=== PATIENT | male | born 1965 | race Hispanic/Latino ===

== ENCOUNTER 2020-09-10 12:23 | Inpatient (IN) | payer MEDICAID, OTHER ==
[~2020-09-10] VITALS: Ht 167.6 cm; Wt 89.7 kg
[2020-09-10] MEDS ORDERED: ONDANSETRON 4MG INJ ONE (12:34)
[2020-09-10] MEDS ORDERED: CEFAZOLIN SODIUM 1 GM VIAL ONE (12:34)
[2020-09-10] MEDS ORDERED: MORPHINE 4 MG SYG ONE (12:35)
[2020-09-10 12:50] LABS: BASOPHILS % (AUTO) 3.2 % (0.0-5.0); EOSINOPHILS % (AUTO) 4.5 % (0.0-8.0); HEMATOCRIT 29.9 % (42-54); LYMPHOCYTES % (AUTO) 43.4 % (21.0-51.0); MEAN CORPUSCULAR HEMOGLOBIN 25.2 pg (27.0-33.0); MEAN CORPUSCULAR HGB CONC 32.1 g/dL (32.0-36.0); MEAN CORPUSCULAR VOLUME 78.5 fL (79-99); MONOCYTES % (AUTO) 8.1 % (3.0-13.0); NEUTROPHILS % (AUTO) 40.1 % (40.0-77.0); PLATELET COUNT (AUTO) 20 K/uL (130-400); RED BLOOD CELL COUNT(AUTO) 3.81 MIL/uL (4.50-6.20); RED CELL DISTRIBUTION WIDTH 25.3 % (11.0-15.5); WHITE BLOOD COUNT (AUTO) 4.4 K/uL (4.8-10.8)
[2020-09-10 13:02] LABS: B-TYPE NATRIURETIC PEPTIDE 20 pg/mL (0-100)
[2020-09-10 13:05] LABS: CREATININE 0.8 mg/dL (0.5-1.5); POTASSIUM 3.6 mmol/L (3.5-5.1)
[2020-09-10 13:10] LABS: ALBUMIN 1.9 g/dL (3.5-5.0); BILIRUBIN,TOTAL 8.9 mg/dL (0.2-1.0); TOTAL PROTEIN, SERUM 6.1 g/dL (6.0-8.3)
[2020-09-10 13:29] LABS: PROTHROMBIN TIME > 63.0 SEC (9.6-11.6)
[2020-09-10 13:30] LABS: INR > 7.00 (0.85-1.15); PARTIAL THROMBOPLASTIN TIME 43.2 SEC (26.3-35.5)
[2020-09-10 14:21] LABS: APPEARANCE,URINE Clear (CLEAR); BILIRUBIN,URINE Small (NEGATIVE); COLOR,URINE Dark Yellow (YELLOW); GLUCOSE, URINE (UA) Negative (NEGATIVE); KETONES,URINE Negative (NEGATIVE); LEUKOCYTE ESTERASE ,URINE Negative (NEGATIVE); NITRATE,URINE Negative (NEGATIVE); OCCULT BLOOD,URINE Negative (NEGATIVE); PH,URINE 7.5 (5.0-8.0); PROTEIN,URINE Negative (NEGATIVE)
[2020-09-10 14:42] LABS: BACTERIA,URINE Rare /HPF (None Seen); MUCUS,URINE Few LPF (None Seen); RBC,URINE 0-1 /HPF (0-1); SQUAMOUS EPITHELIAL CELL,UR Rare /HPF (0-2); WBC,URINE 0-1 /HPF (0-1)
[2020-09-10] MEDS: ZOSYN 3.375GM+NS 50ML 50 ML IV SCH (16:30)
[2020-09-10] MEDS: LACTATED RINGERS 1000ML 1,000 ML IV SCH (16:30)
[2020-09-10] MEDS ORDERED: PHARMACY COMMUNICATION MISC PRN (16:30)
[2020-09-10 16:54] LABS: ACETAMINOPHEN < 1 mcg/mL (10-29); ALCOHOL, BLOOD 259 mg/dL (0-10)
[2020-09-10] MEDS ORDERED: PHYTONADIONE 10 MG in 0.9%NACL 50ML 50 ML IV SCH (17:15)
[2020-09-10] MEDS ORDERED: LACTATED RINGERS 1000ML 1,000 ML IV ONE (18:02)
[2020-09-10] MEDS ORDERED: THIAMINE HCL 100 MG/ML 2ML VIAL ONE (18:02)
[2020-09-10] MEDS ORDERED: FOLIC ACID 5 MG/ML VIAL ONE (18:03)
[2020-09-10] MEDS ORDERED: ZOSYN 3.375GM+NS 50ML 50 ML IV ONE (20:50)
[2020-09-11] MEDS: ZOSYN 3.375GM+NS 50ML 50 ML IV SCH ×3 (00:30→16:42)
[2020-09-11 00:50] VITALS: BP 131/92
[2020-09-11] MEDS: LACTATED RINGERS 1000ML 1,000 ML IV SCH ×2 (01:45→16:29)
[2020-09-11 03:55] VITALS: BP 115/67
[2020-09-11 08:17] LABS: BASOPHILS % (AUTO) 1.7 % (0.0-5.0); EOSINOPHILS % (AUTO) 2.1 % (0.0-8.0); HEMATOCRIT 27.2 % (42-54); LYMPHOCYTES % (AUTO) 35.8 % (21.0-51.0); MEAN CORPUSCULAR HEMOGLOBIN 25.2 pg (27.0-33.0); MEAN CORPUSCULAR HGB CONC 31.6 g/dL (32.0-36.0); MEAN CORPUSCULAR VOLUME 79.8 fL (79-99); MONOCYTES % (AUTO) 9.4 % (3.0-13.0); NEUTROPHILS % (AUTO) 50.8 % (40.0-77.0); PLATELET COUNT (AUTO) 31 K/uL (130-400); RED BLOOD CELL COUNT(AUTO) 3.41 MIL/uL (4.50-6.20); RED CELL DISTRIBUTION WIDTH 25.2 % (11.0-15.5); WHITE BLOOD COUNT (AUTO) 5.3 K/uL (4.8-10.8)
[2020-09-11 08:31] LABS: INR 1.84 (0.85-1.15); PARTIAL THROMBOPLASTIN TIME 33.5 SEC (26.3-35.5); PROTHROMBIN TIME 18.4 SEC (9.6-11.6)
[2020-09-11 08:32] LABS: ALBUMIN 2.1 g/dL (3.5-5.0); BILIRUBIN,TOTAL 9.2 mg/dL (0.2-1.0); CREATININE 0.7 mg/dL (0.5-1.5); CRP QUANTITATIVE 8.4 mg/L (0.00-9.0); MAGNESIUM 1.5 mg/dL (1.80-2.40); POTASSIUM 3.6 mmol/L (3.5-5.1)
[2020-09-11 08:50] VITALS: BP 113/58
[2020-09-11] MEDS ORDERED: COMPOUND IV REFRIGERATED 1 EACH IVSOLN MISC PRN (09:00)
[2020-09-11] MEDS ORDERED: CALCIUM GLUC 1GM/10ML VIAL IV SCH (09:15)
[2020-09-11] MEDS ORDERED: CALCIUM GLUC 1GM 1 GM in 0.9%NACL 100ML 100 ML IV SCH (09:30)
[2020-09-11] MEDS: LACTULOSE 20 GM/30 ML UDCUP PO SCH ×2 (10:09→19:56)
[2020-09-11] MEDS: PANTOPRAZOLE 40 MG/VIAL IVP SCH ×2 (10:10→21:00)
[2020-09-11] MEDS: CHLORDIAZEPOXIDE HCL 25 MG CAP PO PRN (10:12)
[2020-09-11] MEDS: METOPROLOL TARTRATE 25 MG TAB PO SCH ×2 (10:14→21:00)
[2020-09-11 12:11] VITALS: BP 139/82
[2020-09-11] MEDS: THIAMINE HCL 100 MG/ML 2ML VIAL IVP SCH (16:43)
[2020-09-11] MEDS: MAGNESIUM 2GM PREMIX 50ML 50 ML IV SCH (16:43)
[2020-09-11] MEDS: FOLIC ACID 5 MG/ML VIAL IV SCH (16:43)
[2020-09-11 16:50] VITALS: BP 126/69
[2020-09-11 20:17] VITALS: BP 133/71
[2020-09-11] MEDS: CEPHALEXIN 500 MG CAPSULE PO SCH (21:00)
[2020-09-11] MEDS ORDERED: DOXYCYCLINE 100MG+NS 250ML 250 ML IV SCH (21:00)
[2020-09-11] MEDS: DOXYCYCLINE 100MG+NS 250ML 250 ML IV SCH (21:00)
[2020-09-12] VITALS (7 sets, daily range): BP systolic 108–155; BP diastolic 71–87
[2020-09-12] MEDS: LORAZEPAM 2 MG/ML 1 ML VIAL IVP PRN ×2 (00:09→23:39)
[2020-09-12 06:22] LABS: BASOPHILS % (AUTO) 1.9 % (0.0-5.0); EOSINOPHILS % (AUTO) 2.3 % (0.0-8.0); MEAN CORPUSCULAR HEMOGLOBIN 25.1 pg (27.0-33.0); MEAN CORPUSCULAR HGB CONC 31.2 g/dL (32.0-36.0); MEAN CORPUSCULAR VOLUME 80.4 fL (79-99); MONOCYTES % (AUTO) 11.3 % (3.0-13.0); NEUTROPHILS % (AUTO) 55.2 % (40.0-77.0); PLATELET COUNT (AUTO) 18 K/uL (130-400); RED BLOOD CELL COUNT(AUTO) 3.11 MIL/uL (4.50-6.20); RED CELL DISTRIBUTION WIDTH 25.3 % (11.0-15.5); WHITE BLOOD COUNT (AUTO) 3.1 K/uL (4.8-10.8)
[2020-09-12 06:37] LABS: INR 2.19 (0.85-1.15); PROTHROMBIN TIME 22.2 SEC (9.6-11.6)
[2020-09-12 06:42] LABS: CREATININE 0.8 mg/dL (0.5-1.5); MAGNESIUM 1.6 mg/dL (1.80-2.40); POTASSIUM 3.6 mmol/L (3.5-5.1)
[2020-09-12] MEDS: LACTATED RINGERS 1000ML 1,000 ML IV SCH ×2 (07:37→21:04)
[2020-09-12] MEDS ORDERED: MAGNESIUM 2GM PREMIX 50ML 50 ML IV SCH (09:00)
[2020-09-12] MEDS: DOXYCYCLINE 100MG+NS 250ML 250 ML IV SCH ×2 (10:44→20:41)
[2020-09-12] MEDS: MAGNESIUM 2GM PREMIX 50ML 50 ML IV SCH (10:46)
[2020-09-12] MEDS: PANTOPRAZOLE 40 MG/VIAL IVP SCH ×2 (10:46→20:41)
[2020-09-12] MEDS: METOPROLOL TARTRATE 25 MG TAB PO SCH ×2 (10:46→20:42)
[2020-09-12] MEDS: CHLORDIAZEPOXIDE HCL 25 MG CAP PO PRN (10:46)
[2020-09-12] MEDS: THIAMINE HCL 100 MG/ML 2ML VIAL IVP SCH (10:46)
[2020-09-12] MEDS: LACTULOSE 20 GM/30 ML UDCUP PO SCH ×2 (10:47→20:41)
[2020-09-12] MEDS: CEPHALEXIN 500 MG CAPSULE PO SCH ×3 (10:53→20:41)
[2020-09-12] MEDS: FOLIC ACID 5 MG/ML VIAL IV SCH (12:16)
[2020-09-13] VITALS (7 sets, daily range): BP systolic 112–151; BP diastolic 55–84
[2020-09-13] MEDS: LACTATED RINGERS 1000ML 1,000 ML IV SCH ×2 (04:18→23:24)
[2020-09-13 04:25] LABS: BASOPHILS % (AUTO) 1.4 % (0.0-5.0); EOSINOPHILS % (AUTO) 2.5 % (0.0-8.0); HEMATOCRIT 25.5 % (42-54); LYMPHOCYTES % (AUTO) 26.6 % (21.0-51.0); MEAN CORPUSCULAR HEMOGLOBIN 25.6 pg (27.0-33.0); MEAN CORPUSCULAR HGB CONC 31.4 g/dL (32.0-36.0); MEAN CORPUSCULAR VOLUME 81.5 fL (79-99); MONOCYTES % (AUTO) 12.1 % (3.0-13.0); NEUTROPHILS % (AUTO) 57.1 % (40.0-77.0); PLATELET COUNT (AUTO) 19 K/uL (130-400); RED BLOOD CELL COUNT(AUTO) 3.13 MIL/uL (4.50-6.20); RED CELL DISTRIBUTION WIDTH 25.2 % (11.0-15.5); WHITE BLOOD COUNT (AUTO) 3.5 K/uL (4.8-10.8)
[2020-09-13 04:36] LABS: CREATININE 0.9 mg/dL (0.5-1.5); MAGNESIUM 1.5 mg/dL (1.80-2.40); POTASSIUM 3.5 mmol/L (3.5-5.1)
[2020-09-13 04:38] LABS: INR 2.48 (0.85-1.15); PROTHROMBIN TIME 24.9 SEC (9.6-11.6)
[2020-09-13] MEDS: MAGNESIUM 2GM PREMIX 50ML 50 ML IV SCH (05:11)
[2020-09-13] MEDS: LACTULOSE 20 GM/30 ML UDCUP PO SCH ×4 (09:26→22:39)
[2020-09-13] MEDS: THIAMINE HCL 100 MG/ML 2ML VIAL IVP SCH (09:26)
[2020-09-13] MEDS: DOXYCYCLINE 100MG+NS 250ML 250 ML IV SCH ×2 (09:26→22:38)
[2020-09-13] MEDS: CEPHALEXIN 500 MG CAPSULE PO SCH ×3 (09:26→22:39)
[2020-09-13] MEDS: FOLIC ACID 5 MG/ML VIAL IV SCH (09:26)
[2020-09-13] MEDS: PANTOPRAZOLE 40 MG/VIAL IVP SCH ×2 (09:26→22:39)
[2020-09-13] MEDS: METOPROLOL TARTRATE 25 MG TAB PO SCH ×2 (09:26→22:39)
[2020-09-13] MEDS: LORAZEPAM 2 MG/ML 1 ML VIAL IVP PRN ×3 (11:20→22:39)
[2020-09-13] MEDS: CHLORDIAZEPOXIDE HCL 25 MG CAP PO PRN ×2 (11:20→17:24)
[2020-09-14 04:00] VITALS: BP 117/57
[2020-09-14 04:48] LABS: BASOPHILS % (AUTO) 1.6 % (0.0-5.0); HEMATOCRIT 25.7 % (42-54); MEAN CORPUSCULAR HGB CONC 31.5 g/dL (32.0-36.0); MEAN CORPUSCULAR VOLUME 82.4 fL (79-99); MONOCYTES % (AUTO) 11.8 % (3.0-13.0); NEUTROPHILS % (AUTO) 64.1 % (40.0-77.0); PLATELET COUNT (AUTO) 20 K/uL (130-400); RED BLOOD CELL COUNT(AUTO) 3.12 MIL/uL (4.50-6.20); RED CELL DISTRIBUTION WIDTH 25.2 % (11.0-15.5); WHITE BLOOD COUNT (AUTO) 4.3 K/uL (4.8-10.8)
[2020-09-14 04:56] LABS: CREATININE 0.7 mg/dL (0.5-1.5); POTASSIUM 3.2 mmol/L (3.5-5.1)
[2020-09-14 08:00] VITALS: BP 110/60
[2020-09-14] MEDS: LACTULOSE 20 GM/30 ML UDCUP PO SCH ×3 (08:54→20:42)
[2020-09-14] MEDS: METOPROLOL TARTRATE 25 MG TAB PO SCH ×2 (08:55→20:42)
[2020-09-14] MEDS: PANTOPRAZOLE 40 MG/VIAL IVP SCH (08:55)
[2020-09-14] MEDS: THIAMINE HCL 100 MG/ML 2ML VIAL IVP SCH (08:55)
[2020-09-14] MEDS: CEPHALEXIN 500 MG CAPSULE PO SCH ×3 (08:55→20:42)
[2020-09-14] MEDS: DOXYCYCLINE 100MG+NS 250ML 250 ML IV SCH (08:55)
[2020-09-14] MEDS: PREDNISOLONE 15 MG/5 ML SOLN PO SCH (10:38)
[2020-09-14] MEDS ORDERED: CEPH500C2 PO (11:15)
[2020-09-14] MEDS ORDERED: PRED15SO6 PO (11:15)
[2020-09-14] MEDS ORDERED: SPIR50TA5 PO (11:15)
[2020-09-14] MEDS ORDERED: LACT PO (11:15)
[2020-09-14 13:00] VITALS: BP 108/50
[2020-09-14] MEDS ORDERED: LORAZEPAM 2 MG TABLET PO PRN (13:45)
[2020-09-14] MEDS ORDERED: KCL 20 MEQ ERTAB PO PRN (13:45)
[2020-09-14] MEDS: POTASSIUM CHLORIDE 10% ELIXIR 20 MEQ/15 ML UDCUP PO PRN ×3 (13:57→18:19)
[2020-09-14 16:00] VITALS: BP 109/57
[2020-09-14 19:00] VITALS: BP 105/66
[2020-09-14] MEDS: DOXYCYCLINE HYCLATE 100 MG TABLET PO SCH (20:42)
[2020-09-14] MEDS: PANTOPRAZOLE 40 MG TAB DR PO SCH (20:42)
[2020-09-14 23:00] VITALS: BP 100/60
[2020-09-15 03:00] VITALS: BP 117/69
[2020-09-15 08:31] VITALS: BP 114/56
[2020-09-15] MEDS: PREDNISOLONE 15 MG/5 ML SOLN PO SCH (09:53)
[2020-09-15] MEDS: CEPHALEXIN 500 MG CAPSULE PO SCH ×3 (09:53→21:21)
[2020-09-15] MEDS: FOLIC ACID 1 MG TABLET PO SCH (09:53)
[2020-09-15] MEDS: METOPROLOL TARTRATE 25 MG TAB PO SCH ×2 (09:53→21:21)
[2020-09-15] MEDS: LACTULOSE 20 GM/30 ML UDCUP PO SCH ×3 (09:53→21:21)
[2020-09-15] MEDS: THIAMINE HCL 100 MG TABLET PO SCH (09:53)
[2020-09-15] MEDS: DOXYCYCLINE HYCLATE 100 MG TABLET PO SCH ×2 (09:53→21:22)
[2020-09-15] MEDS: PANTOPRAZOLE 40 MG TAB DR PO SCH ×2 (09:53→21:21)
[2020-09-15 12:11] VITALS: BP 84/45
[2020-09-15 13:26] VITALS: BP_SYST 104; BP_SYST 87; BP_DIAS 51; BP_DIAS 53
[2020-09-15 16:18] VITALS: BP 95/52
[2020-09-15 20:00] VITALS: BP 115/66
[2020-09-16 00:44] VITALS: BP 123/63
[2020-09-16 04:00] VITALS: BP 111/67
[2020-09-16 04:26] LABS: BASOPHILS % (AUTO) 0.4 % (0.0-5.0); EOSINOPHILS % (AUTO) 0.4 % (0.0-8.0); HEMATOCRIT 24.4 % (42-54); MEAN CORPUSCULAR HEMOGLOBIN 26.6 pg (27.0-33.0); MEAN CORPUSCULAR HGB CONC 31.6 g/dL (32.0-36.0); MEAN CORPUSCULAR VOLUME 84.4 fL (79-99); MONOCYTES % (AUTO) 10.7 % (3.0-13.0); NEUTROPHILS % (AUTO) 72.1 % (40.0-77.0); PLATELET COUNT (AUTO) 19 K/uL (130-400); RED BLOOD CELL COUNT(AUTO) 2.89 MIL/uL (4.50-6.20); RED CELL DISTRIBUTION WIDTH 25.5 % (11.0-15.5); WHITE BLOOD COUNT (AUTO) 7.2 K/uL (4.8-10.8)
[2020-09-16 04:49] LABS: CREATININE 0.8 mg/dL (0.5-1.5); POTASSIUM 3.5 mmol/L (3.5-5.1)
[2020-09-16 08:46] VITALS: BP_SYST 121; BP_SYST 143; BP_DIAS 60; BP_DIAS 77
[2020-09-16] MEDS: CEPHALEXIN 500 MG CAPSULE PO SCH (09:12)
[2020-09-16] MEDS: FOLIC ACID 1 MG TABLET PO SCH (09:12)
[2020-09-16] MEDS: PANTOPRAZOLE 40 MG TAB DR PO SCH (09:13)
[2020-09-16] MEDS: METOPROLOL TARTRATE 25 MG TAB PO SCH (09:13)
[2020-09-16] MEDS: THIAMINE HCL 100 MG TABLET PO SCH (09:13)
[2020-09-16] MEDS: LACTULOSE 20 GM/30 ML UDCUP PO SCH (09:13)
[2020-09-16] MEDS: DOXYCYCLINE HYCLATE 100 MG TABLET PO SCH (09:13)
[2020-09-16] MEDS: PREDNISOLONE 15 MG/5 ML SOLN PO SCH (09:17)
[2020-09-16 12:17] VITALS: BP 96/63
== END 2020-09-16 14:37 | disposition home or self-care (01) | DRG 602 ==
LOC: EDH 12:23 → EDHIP 12:24 → 4CH 09-11 00:52 → 4DH 09-13 12:44
PROVIDERS: ADMIT Internal Medicine; ATTEND Internal Medicine
PROC: 30233K1 Transfusion of Nonautologous Frozen Plasma into Peripheral Vein, Percutaneous Approach (ICD-10-PCS; principal; 2020-09-10)
PROC: 30233R1 Transfusion of Nonautologous Platelets into Peripheral Vein, Percutaneous Approach (ICD-10-PCS; 2020-09-10)
DX: L03.113 Cellulitis of right upper limb (principal); G93.41 Metabolic encephalopathy; D65 Disseminated intravascular coagulation [defibrination syndrome]; E44.0 Moderate protein-calorie malnutrition; D61.818 Other pancytopenia; K76.6 Portal hypertension; J32.0 Chronic maxillary sinusitis; K72.90 Hepatic failure, unspecified without coma; E83.42 Hypomagnesemia; F10.229 Alcohol dependence with intoxication, unspecified; F17.200 Nicotine dependence, unspecified, uncomplicated; I48.0 Paroxysmal atrial fibrillation; K70.11 Alcoholic hepatitis with ascites; K70.31 Alcoholic cirrhosis of liver with ascites; Z20.822 Contact with and (suspected) exposure to COVID-19; K82.8 Other specified diseases of gallbladder; S30.1XXA Contusion of abdominal wall, initial encounter; W18.30XA Fall on same level, unspecified, initial encounter; L98.499 Non-pressure chronic ulcer of skin of other sites with unspecified severity; Y90.8 Blood alcohol level of 240 mg/100 ml or more; Z82.3 Family history of stroke; Z68.31 Body mass index [BMI] 31.0-31.9, adult; Y93.89 Activity, other specified; Y92.85 Railroad track as the place of occurrence of the external cause; Y99.8 Other external cause status
CPT/HCPCS: 36415; 70450; 71045; 73090; 73110; 73130; 73200; 74176; 76705; 80048; 80053; 81001; 82140; 82330; 82550; 83605; 83735; 83880; 84132; 84145; 84484; 85025; 85384; 85610; 85730; 86140; 86701; 86850; 86900; 86901; 86927; 87040; 87390; 87426; 93005; 93306; 93356; 93930; 93971; 97039; C9113; G0378; J0610; J0690; J2060; J2270; J2405; J2543; J3411; J3430; J3475; J3490; J7120; P9012; P9017; P9034; U0003

== ENCOUNTER 2020-09-27 18:13 | Inpatient (IN) | payer OTHER ==
[~2020-09-27] VITALS: Ht 167.6 cm; Wt 97.5 kg
[~2020-09-27 18:13] MED LIST: CEPH500C2 PO; LACT PO; PRED15SO6 PO; SPIR50TA5 PO
[2020-09-27] MEDS ORDERED: LEVOFLOXACIN 500 MG/D5W 100 ML 100 ML ONE (18:41)
[2020-09-27 18:59] LABS: BASOPHILS % (AUTO) 0.3 % (0.0-5.0); EOSINOPHILS % (AUTO) 0.6 % (0.0-8.0); LYMPHOCYTES % (AUTO) 9.5 % (21.0-51.0); MEAN CORPUSCULAR HEMOGLOBIN 25.6 pg (27.0-33.0); MEAN CORPUSCULAR HGB CONC 32.2 g/dL (32.0-36.0); MEAN CORPUSCULAR VOLUME 79.4 fL (79-99); MONOCYTES % (AUTO) 5.4 % (3.0-13.0); NUCLEATED RED BLOOD CELLS 0.2 % (0.0-0.19); PLATELET COUNT (AUTO) 60 K/uL (130-400); RED CELL DISTRIBUTION WIDTH 23.5 % (11.0-15.5); WHITE BLOOD COUNT (AUTO) 17.8 K/uL (4.8-10.8)
[2020-09-27 19:01] LABS: CARBON DIOXIDE 23 mmol/L (21-32); CHLORIDE 97 mmol/L (101-111); CREATININE 0.8 mg/dL (0.5-1.5); GLOMERULAR FILTR. RATE CALC 107 mL/min (>60); GLUCOSE,RANDOM 91 mg/dL (70-105); POTASSIUM 3.7 mmol/L (3.5-5.1); SODIUM SERUM 128 mmol/L (136-145); UREA NITROGEN, BLOOD 9 mg/dL (7-18)
[2020-09-27 19:03] LABS: INR 2.21 (0.85-1.15); PROTHROMBIN TIME 22.4 SEC (9.6-11.6)
[2020-09-27 19:05] LABS: PARTIAL THROMBOPLASTIN TIME 36.2 SEC (26.3-35.5)
[2020-09-27 19:12] LABS: ALANINE AMINOTRANSFERASE 87 U/L (12-78); AMMONIA 27 umol/L (11-32); ASPARTATE AMINOTRANSFERASE 73 U/L (10-37); BILIRUBIN,TOTAL 14.1 mg/dL (0.2-1.0); CREATINE KINASE, TOTAL 64 U/L (21-232); MYOGLOBIN 126 ng/mL (10-92); TOTAL PROTEIN, SERUM 5.8 g/dL (6.0-8.3); TROPONIN I < 0.04 ng/mL (0.00-0.06)
[2020-09-27 19:19] LABS: PLATELET MORPHOLOGY COMMENT DECREASED
[2020-09-27] MEDS ORDERED: VANCOMYCIN 1GM+NS 250ML 250 ML IV ONE (19:40)
[2020-09-27] MEDS ORDERED: KETOROLAC TROMETHAMINE 30MG/ML ONE (19:40)
[2020-09-27] MEDS ORDERED: THIAMINE HCL 100 MG/ML 2ML VIAL ONE (19:40)
[2020-09-27] MEDS ORDERED: M.V.I. IV [ADULT] 10 ML VIAL IV ONE (19:41)
[2020-09-27] MEDS ORDERED: FOLIC ACID 5 MG/ML 10 ML VIAL ONE (19:42)
[2020-09-27] MEDS ORDERED: ONDANSETRON HCL 4 MG/2 ML VIAL IV PRN (21:00)
[2020-09-27] MEDS ORDERED: ACETAMINOPHEN 325 MG TAB PO PRN ×2 (21:00)
[2020-09-27] MEDS ORDERED: LACTULOSE 20 GM/30 ML UDCUP PO PRN (21:00)
[2020-09-27] MEDS ORDERED: VANCOMYCIN PROTOCOL PER PHARMACY IV PRN (21:00)
[2020-09-27] MEDS ORDERED: PHARMACY COMMUNICATION MISC SCH (21:15)
[2020-09-27 22:21] LABS: PARTIAL THROMBOPLASTIN TIME 42.7 SEC (26.3-35.5)
[2020-09-27 23:22] LABS: INR > 7.00 (0.85-1.15); PROTHROMBIN TIME > 90.0 SEC (9.6-11.6)
[2020-09-28] VITALS (18 sets, daily range): BP systolic 100–134; BP diastolic 48–69
[2020-09-28] MEDS: LEVOFLOXACIN 500 MG/D5W 100 ML 100 ML IV SCH ×3 (00:15→05:32)
[2020-09-28] MEDS ORDERED: PHYTONADIONE 10 MG/1 ML AMP IM SCH (00:30)
[2020-09-28] MEDS ORDERED: CHLORDIAZEPOXIDE HCL 25 MG CAP PO PRN (00:30)
[2020-09-28] MEDS ORDERED: PHARMACY COMMUNICATION MISC PRN (00:30)
[2020-09-28] MEDS ORDERED: THIAMINE HCL 100 MG TABLET PO SCH (00:30)
[2020-09-28] MEDS ORDERED: LORAZEPAM 2 MG/ML 1 ML VIAL IVP PRN (00:30)
[2020-09-28] MEDS ORDERED: PHYTONADIONE 10 MG/1 ML AMP ONE (00:33)
[2020-09-28] MEDS ORDERED: THIAMINE HCL 100 MG TABLET ONE (00:43)
[2020-09-28] MEDS ORDERED: KETOROLAC TROMETHAMINE 15MG/ML IV PRN (00:45)
[2020-09-28] MEDS: PHYTONADIONE 10 MG/1 ML AMP SQ SCH ×2 (01:00→05:31)
[2020-09-28] MEDS ORDERED: SODIUM CHLORIDE 0.9% 100 ML IV ONE (04:20)
[2020-09-28] MEDS ORDERED: COMPOUND IV REFRIGERATED 1 EACH IVSOLN MISC PRN (08:45)
[2020-09-28] MEDS ORDERED: M.V.I. IV [ADULT] 10 ML, FOLIC ACID 1 MG, THIAMINE HCL 100 MG in SODIUM CHLORIDE 0.9% 1... IV SCH (09:00)
[2020-09-28] MEDS ORDERED: MULTIVITAMIN TABLET PO SCH (09:00)
[2020-09-28] MEDS ORDERED: FOLIC ACID 1 MG TABLET PO SCH (09:00)
[2020-09-28] MEDS ORDERED: SODIUM CHLORIDE 0.9% 500ML 1,000 ML IV ONE (09:07)
[2020-09-28 10:39] LABS: HEMATOCRIT 24.1 % (42-54); MEAN CORPUSCULAR HEMOGLOBIN 25.2 pg (27.0-33.0); MEAN CORPUSCULAR HGB CONC 31.5 g/dL (32.0-36.0); MEAN CORPUSCULAR VOLUME 80.1 fL (79-99); NUCLEATED RED BLOOD CELLS 0.1 % (0.0-0.19); PLATELET COUNT (AUTO) 55 K/uL (130-400); RED BLOOD CELL COUNT(AUTO) 3.01 MIL/uL (4.50-6.20); RED CELL DISTRIBUTION WIDTH 24.2 % (11.0-15.5); WHITE BLOOD COUNT (AUTO) 22.2 K/uL (4.8-10.8)
[2020-09-28 11:00] LABS: CREATININE 1.9 mg/dL (0.5-1.5); POTASSIUM 4.5 mmol/L (3.5-5.1)
[2020-09-28 11:03] LABS: ALBUMIN 1.8 g/dL (3.5-5.0); BILIRUBIN,TOTAL 14.2 mg/dL (0.2-1.0); MAGNESIUM 1.7 mg/dL (1.80-2.40); TOTAL PROTEIN, SERUM 5.2 g/dL (6.0-8.3)
[2020-09-28 11:16] LABS: INR 2.06 (0.85-1.15)
[2020-09-28 11:20] LABS: HEMOGLOBIN A1C 4.4 % (4.0-6.0)
[2020-09-28] MEDS ORDERED: MAGNESIUM 2GM PREMIX 50ML 50 ML IV SCH (11:30)
[2020-09-28 11:36] LABS: BASOPHILS % (MANUAL) 1 % (0-2); LYMPHOCYTES % (MANUAL) 8 % (22-44); MONOCYTES % (MANUAL) 7 % (2-9); SEGMENTED NEUTROPHILS % 84 % (40-70)
[2020-09-28 11:37] LABS: PLATELET MORPHOLOGY COMMENT MARKED DECREASE
[2020-09-28] MEDS ORDERED: ALBUMIN (HUMAN) 25% 50 ML IV SCH (11:45)
[2020-09-28] MEDS: VANCOMYCIN 1.25 GM in SODIUM CHLORIDE 0.9% 250 ML IV SCH ×2 (11:58→22:12)
[2020-09-28 13:37] LABS: HEMATOCRIT 24.9 % (42-54)
[2020-09-28] MEDS: MIDODRINE HCL 5 MG TABLET PO SCH ×2 (14:25→22:05)
[2020-09-28] MEDS: PHYTONADIONE 10 MG/1 ML AMP IM SCH (14:25)
[2020-09-28] MEDS: PANTOPRAZOLE 40 MG/VIAL IVP SCH ×2 (14:25→22:05)
[2020-09-28] MEDS: OCTREOTIDE ACETATE 100 MCG/ML AMP IV SCH ×2 (14:25→22:05)
[2020-09-28] MEDS ORDERED: SODIUM CHLORIDE 0.9% 250 ML IV ONE (16:43)
[2020-09-28 20:58] LABS: HEMATOCRIT 27.2 % (42-54)
[2020-09-28] MEDS: RIFAXIMIN 550 MG TABLET PO SCH (22:05)
[2020-09-28] MEDS ORDERED: ALBUMIN (HUMAN) 25% 100 ML IV ONE (22:27)
[2020-09-29] VITALS (7 sets, daily range): BP systolic 128–154; BP diastolic 57–73
[2020-09-29 03:52] LABS: INR 2.05 (0.85-1.15); PROTHROMBIN TIME 20.9 SEC (9.6-11.6)
[2020-09-29 09:19] LABS: HEMATOCRIT 27.6 % (42-54)
[2020-09-29] MEDS: MIDODRINE HCL 5 MG TABLET PO SCH ×3 (09:26→21:00)
[2020-09-29] MEDS: THIAMINE HCL 100 MG TABLET PO SCH (09:26)
[2020-09-29] MEDS: RIFAXIMIN 550 MG TABLET PO SCH ×2 (09:26→21:12)
[2020-09-29] MEDS: OCTREOTIDE ACETATE 100 MCG/ML AMP IV SCH ×3 (09:26→21:24)
[2020-09-29] MEDS: PANTOPRAZOLE 40 MG/VIAL IVP SCH ×2 (09:26→21:12)
[2020-09-29] MEDS: MULTIVITAMIN WITH MINERALS TABLET PO SCH (09:26)
[2020-09-29] MEDS: FOLIC ACID 1 MG TABLET PO SCH (09:26)
[2020-09-29] MEDS: VANCOMYCIN 1.25 GM in SODIUM CHLORIDE 0.9% 250 ML IV SCH ×2 (09:27→21:00)
[2020-09-29] MEDS: PHYTONADIONE 10 MG/1 ML AMP IM SCH (09:30)
[2020-09-29 13:44] LABS: HEMATOCRIT 28.3 % (42-54)
[2020-09-30] VITALS (7 sets, daily range): BP systolic 114–155; BP diastolic 56–76
[2020-09-30] MEDS: LEVOFLOXACIN 500 MG/D5W 100 ML 100 ML IV SCH (00:17)
[2020-09-30 05:03] LABS: HEMATOCRIT 29.1 % (42-54)
[2020-09-30] MEDS: VANCOMYCIN 1.25 GM in SODIUM CHLORIDE 0.9% 250 ML IV SCH (09:00)
[2020-09-30] MEDS: MIDODRINE HCL 5 MG TABLET PO SCH ×3 (09:00→21:00)
[2020-09-30] MEDS: PANTOPRAZOLE 40 MG/VIAL IVP SCH ×2 (10:23→20:52)
[2020-09-30] MEDS: PHYTONADIONE 10 MG/1 ML AMP IM SCH (10:23)
[2020-09-30] MEDS: OCTREOTIDE ACETATE 100 MCG/ML AMP IV SCH ×3 (10:23→20:52)
[2020-09-30] MEDS: MULTIVITAMIN WITH MINERALS TABLET PO SCH (10:24)
[2020-09-30] MEDS: RIFAXIMIN 550 MG TABLET PO SCH ×2 (10:24→21:02)
[2020-09-30] MEDS: THIAMINE HCL 100 MG TABLET PO SCH (10:24)
[2020-09-30] MEDS: FOLIC ACID 1 MG TABLET PO SCH (10:24)
[2020-09-30 10:34] LABS: CREATININE 4.1 mg/dL (0.5-1.5); POTASSIUM 4.2 mmol/L (3.5-5.1)
[2020-10-01 04:14] VITALS: BP 132/59
[2020-10-01 04:33] LABS: BASOPHILS % (AUTO) 0.5 % (0.0-5.0); EOSINOPHILS % (AUTO) 6.3 % (0.0-8.0); HEMATOCRIT 27.4 % (42-54); LYMPHOCYTES % (AUTO) 9.5 % (21.0-51.0); MEAN CORPUSCULAR HEMOGLOBIN 25.9 pg (27.0-33.0); MEAN CORPUSCULAR HGB CONC 32.5 g/dL (32.0-36.0); MEAN CORPUSCULAR VOLUME 79.9 fL (79-99); MONOCYTES % (AUTO) 10.5 % (3.0-13.0); NEUTROPHILS % (AUTO) 71.8 % (40.0-77.0); PLATELET COUNT (AUTO) 44 K/uL (130-400); RED BLOOD CELL COUNT(AUTO) 3.43 MIL/uL (4.50-6.20); RED CELL DISTRIBUTION WIDTH 22.3 % (11.0-15.5); WHITE BLOOD COUNT (AUTO) 11.8 K/uL (4.8-10.8)
[2020-10-01 04:53] LABS: CREATININE 4.9 mg/dL (0.5-1.5); PHOSPHORUS 6.7 mg/dL (2.5-4.9); POTASSIUM 4.5 mmol/L (3.5-5.1)
[2020-10-01 08:00] VITALS: BP 137/71
[2020-10-01] MEDS: MIDODRINE HCL 5 MG TABLET PO SCH ×3 (09:00→21:00)
[2020-10-01 09:29] LABS: INR 2.09 (0.85-1.15); PROTHROMBIN TIME 21.3 SEC (9.6-11.6)
[2020-10-01] MEDS: THIAMINE HCL 100 MG TABLET PO SCH (10:09)
[2020-10-01] MEDS: RIFAXIMIN 550 MG TABLET PO SCH ×2 (10:09→21:39)
[2020-10-01] MEDS: PANTOPRAZOLE 40 MG/VIAL IVP SCH ×2 (10:09→21:39)
[2020-10-01] MEDS: OCTREOTIDE ACETATE 100 MCG/ML AMP IV SCH ×3 (10:09→21:38)
[2020-10-01] MEDS: FOLIC ACID 1 MG TABLET PO SCH (10:09)
[2020-10-01] MEDS: MULTIVITAMIN WITH MINERALS TABLET PO SCH (10:09)
[2020-10-01 11:44] VITALS: BP 123/60
[2020-10-01] MEDS: CALCIUM ACETATE 667 MG CAPSULE PO SCH ×2 (13:52→17:48)
[2020-10-01 16:00] VITALS: BP 155/76
[2020-10-01 19:00] VITALS: BP 151/76
[2020-10-01 22:07] LABS: CREATININE,URINE RANDOM 24 mg/dL (30-135); SODIUM,URINE RANDOM 19 mmol/l (40-220)
[2020-10-01 23:00] LABS: APPEARANCE,URINE Clear (CLEAR); BILIRUBIN,URINE Negative (NEGATIVE); COLOR,URINE Yellow (YELLOW); GLUCOSE, URINE (UA) Negative (NEGATIVE); KETONES,URINE Negative (NEGATIVE); LEUKOCYTE ESTERASE ,URINE Trace (NEGATIVE); NITRATE,URINE Negative (NEGATIVE); OCCULT BLOOD,URINE Negative (NEGATIVE); PH,URINE 5.5 (5.0-8.0); PROTEIN,URINE Negative (NEGATIVE)
[2020-10-01 23:06] LABS: AMPHET/METH SCREEN,URINE NEGATIVE (NEGATIVE); BARBITURATE SCREEN, URINE NEGATIVE (NEGATIVE); BENZODIAZEPINES SCREEN,URINE NEGATIVE (NEGATIVE); CANNABINOID SCREEN,URINE NEGATIVE (NEGATIVE); COCAINE SCREEN,URINE NEGATIVE (NEGATIVE); OPIATE SCREEN,URINE NEGATIVE (NEGATIVE); PHENCYCLIDINE SCREEN,URINE NEGATIVE (NEGATIVE)
[2020-10-01 23:32] LABS: RBC,URINE None Seen /HPF (0-1); WBC,URINE 0-1 /HPF (0-1)
[2020-10-01 23:33] LABS: BACTERIA,URINE Few /HPF (None Seen); YEAST,URINE BUDDING Few /HPF (None Seen)
[2020-10-02] VITALS: BP 128/62
[2020-10-02 04:00] VITALS: BP 129/54
[2020-10-02 04:21] LABS: % IRON SATURATION 75.5 % (30-44)
[2020-10-02 05:02] LABS: BASOPHILS % (AUTO) 0.7 % (0.0-5.0); EOSINOPHILS % (AUTO) 1.7 % (0.0-8.0); HEMATOCRIT 27.3 % (42-54); LYMPHOCYTES % (AUTO) 8.5 % (21.0-51.0); MEAN CORPUSCULAR HGB CONC 31.9 g/dL (32.0-36.0); MEAN CORPUSCULAR VOLUME 81.7 fL (79-99); MONOCYTES % (AUTO) 11.1 % (3.0-13.0); PLATELET COUNT (AUTO) 38 K/uL (130-400); RED BLOOD CELL COUNT(AUTO) 3.34 MIL/uL (4.50-6.20); RED CELL DISTRIBUTION WIDTH 22.5 % (11.0-15.5); WHITE BLOOD COUNT (AUTO) 10.2 K/uL (4.8-10.8)
[2020-10-02 05:22] LABS: ALBUMIN 1.7 g/dL (3.5-5.0); CREATININE 5.7 mg/dL (0.5-1.5); PHOSPHORUS 6.7 mg/dL (2.5-4.9); POTASSIUM 4.5 mmol/L (3.5-5.1); TOTAL PROTEIN, SERUM 4.8 g/dL (6.0-8.3)
[2020-10-02 05:26] LABS: BILIRUBIN,DIRECT 11.1 mg/dL (0.0-0.3); BILIRUBIN,TOTAL 17.3 mg/dL (0.2-1.0)
[2020-10-02 07:00] VITALS: BP 111/59
[2020-10-02] MEDS ORDERED: FUROSEMIDE 10 MG/ML 4ML VIAL IV SCH (09:00)
[2020-10-02] MEDS: LEVOFLOXACIN 500 MG/D5W 100 ML 100 ML IV SCH (09:27)
[2020-10-02] MEDS: OCTREOTIDE ACETATE 100 MCG/ML AMP IV SCH ×3 (09:27→21:00)
[2020-10-02] MEDS: PANTOPRAZOLE 40 MG/VIAL IVP SCH (09:27)
[2020-10-02] MEDS: MIDODRINE HCL 5 MG TABLET PO SCH ×3 (09:27→21:00)
[2020-10-02] MEDS: CALCIUM ACETATE 667 MG CAPSULE PO SCH ×3 (09:27→17:36)
[2020-10-02] MEDS: LACTULOSE 20 GM/30 ML UDCUP PO SCH ×2 (09:27→21:00)
[2020-10-02] MEDS: FOLIC ACID 1 MG TABLET PO SCH (09:28)
[2020-10-02] MEDS: MULTIVITAMIN WITH MINERALS TABLET PO SCH (09:28)
[2020-10-02] MEDS: RIFAXIMIN 550 MG TABLET PO SCH ×2 (09:28→21:00)
[2020-10-02] MEDS: THIAMINE HCL 100 MG TABLET PO SCH (09:28)
[2020-10-02 11:00] VITALS: BP 119/55
[2020-10-02 16:00] VITALS: BP 151/75
[2020-10-02 19:00] VITALS: BP 119/68
[2020-10-02] MEDS: PANTOPRAZOLE SODIUM 80 MG in SODIUM CHLORIDE 0.9% 100 ML IVP SCH (21:44)
[2020-10-03] VITALS: BP 134/75
[2020-10-03 04:00] VITALS: BP 112/56
[2020-10-03 05:52] LABS: BASOPHILS % (AUTO) 0.8 % (0.0-5.0); EOSINOPHILS % (AUTO) 4.8 % (0.0-8.0); HEMATOCRIT 26.9 % (42-54); LYMPHOCYTES % (AUTO) 10.8 % (21.0-51.0); MEAN CORPUSCULAR HEMOGLOBIN 26.3 pg (27.0-33.0); MEAN CORPUSCULAR VOLUME 82.3 fL (79-99); MONOCYTES % (AUTO) 11.6 % (3.0-13.0); NEUTROPHILS % (AUTO) 70.6 % (40.0-77.0); PLATELET COUNT (AUTO) 44 K/uL (130-400); RED BLOOD CELL COUNT(AUTO) 3.27 MIL/uL (4.50-6.20); RED CELL DISTRIBUTION WIDTH 22.5 % (11.0-15.5); WHITE BLOOD COUNT (AUTO) 10.3 K/uL (4.8-10.8)
[2020-10-03 06:12] LABS: CREATININE 6.5 mg/dL (0.5-1.5); POTASSIUM 4.4 mmol/L (3.5-5.1)
[2020-10-03] MEDS: PANTOPRAZOLE SODIUM 80 MG in SODIUM CHLORIDE 0.9% 100 ML IVP SCH (06:51)
[2020-10-03] MEDS: CALCIUM ACETATE 667 MG CAPSULE PO SCH ×3 (08:00→16:31)
[2020-10-03 08:08] VITALS: BP 131/62
[2020-10-03] MEDS: OCTREOTIDE ACETATE 100 MCG/ML AMP IV SCH ×3 (09:51→20:47)
[2020-10-03] MEDS: LACTULOSE 20 GM/30 ML UDCUP PO SCH ×2 (09:51→20:47)
[2020-10-03] MEDS: THIAMINE HCL 100 MG TABLET PO SCH (09:51)
[2020-10-03] MEDS: FOLIC ACID 1 MG TABLET PO SCH (09:51)
[2020-10-03] MEDS: RIFAXIMIN 550 MG TABLET PO SCH ×2 (09:51→20:47)
[2020-10-03] MEDS: MULTIVITAMIN WITH MINERALS TABLET PO SCH (09:51)
[2020-10-03] MEDS: MIDODRINE HCL 5 MG TABLET PO SCH ×3 (09:51→20:47)
[2020-10-03 10:05] LABS: HEMATOCRIT 29.3 % (42-54)
[2020-10-03 11:21] VITALS: BP 122/53
[2020-10-03 15:00] VITALS: BP 122/53
[2020-10-03 15:35] LABS: HEMATOCRIT 28.1 % (42-54)
[2020-10-03] MEDS ORDERED: PEG 3350/NA SULF,BICARB,CL/KCL 4000 ML SOLN PO SCH (17:30)
[2020-10-03 19:00] VITALS: BP 135/67
[2020-10-03 21:29] LABS: HEMATOCRIT 29.5 % (42-54)
[2020-10-03 21:43] LABS: INR 2.26 (0.85-1.15); PARTIAL THROMBOPLASTIN TIME 47.7 SEC (26.3-35.5); PROTHROMBIN TIME 22.3 SEC (9.6-11.6)
[2020-10-04] VITALS (20 sets, daily range): BP systolic 108–152; BP diastolic 50–80
[2020-10-04 05:15] LABS: INR 1.78 (0.85-1.15); PROTHROMBIN TIME 17.8 SEC (9.6-11.6)
[2020-10-04 05:58] LABS: BASOPHILS % (AUTO) 0.7 % (0.0-5.0); EOSINOPHILS % (AUTO) 4.7 % (0.0-8.0); HEMATOCRIT 26.1 % (42-54); LYMPHOCYTES % (AUTO) 8.2 % (21.0-51.0); MEAN CORPUSCULAR HEMOGLOBIN 26.3 pg (27.0-33.0); MEAN CORPUSCULAR HGB CONC 31.8 g/dL (32.0-36.0); MEAN CORPUSCULAR VOLUME 82.9 fL (79-99); MONOCYTES % (AUTO) 10.2 % (3.0-13.0); PLATELET COUNT (AUTO) 75 K/uL (130-400); RED BLOOD CELL COUNT(AUTO) 3.15 MIL/uL (4.50-6.20); RED CELL DISTRIBUTION WIDTH 22.6 % (11.0-15.5); WHITE BLOOD COUNT (AUTO) 8.7 K/uL (4.8-10.8)
[2020-10-04 06:05] LABS: CREATININE 6.8 mg/dL (0.5-1.5); POTASSIUM 4.2 mmol/L (3.5-5.1)
[2020-10-04] MEDS: CALCIUM ACETATE 667 MG CAPSULE PO SCH ×3 (08:00→17:01)
[2020-10-04] MEDS ORDERED: FUROSEMIDE 10 MG/ML 4ML VIAL IV SCH (08:30)
[2020-10-04] MEDS: RIFAXIMIN 550 MG TABLET PO SCH ×2 (09:00→20:55)
[2020-10-04] MEDS: THIAMINE HCL 100 MG TABLET PO SCH (09:00)
[2020-10-04] MEDS: MULTIVITAMIN WITH MINERALS TABLET PO SCH (09:00)
[2020-10-04] MEDS: FOLIC ACID 1 MG TABLET PO SCH (09:00)
[2020-10-04] MEDS: LEVOFLOXACIN 500 MG/D5W 100 ML 100 ML IV SCH (09:00)
[2020-10-04] MEDS: MIDODRINE HCL 5 MG TABLET PO SCH ×3 (09:00→21:28)
[2020-10-04] MEDS: LACTULOSE 20 GM/30 ML UDCUP PO SCH ×2 (09:00→20:55)
[2020-10-04] MEDS: OCTREOTIDE ACETATE 100 MCG/ML AMP IV SCH ×3 (09:45→21:28)
[2020-10-04] MEDS ORDERED: PROPOFOL 10 MG/ML 20ML VIAL IV ONE (12:18)
[2020-10-04] MEDS ORDERED: LIDOCAINE HCL 1% 20 ML VIAL ONE (12:18)
[2020-10-04] MEDS ORDERED: MIDAZOLAM HCL 1 MG/ML 2ML VIAL ONE (12:20)
[2020-10-04] MEDS ORDERED: EPHEDRINE SULFATE 50 MG/ML AMPULE ONE (12:25)
[2020-10-04 13:55] LABS: ALBUMIN 2.1 g/dL (3.5-5.0); TOTAL PROTEIN, SERUM 5.3 g/dL (6.0-8.3)
[2020-10-04 14:01] LABS: BILIRUBIN,DIRECT 10.5 mg/dL (0.0-0.3); BILIRUBIN,TOTAL 18.5 mg/dL (0.2-1.0)
[2020-10-04] MEDS: CEPHALEXIN 250 MG CAPSULE PO SCH (18:13)
[2020-10-05] VITALS (7 sets, daily range): BP systolic 111–142; BP diastolic 52–87
[2020-10-05 05:39] LABS: BASOPHILS % (AUTO) 0.7 % (0.0-5.0); EOSINOPHILS % (AUTO) 5.4 % (0.0-8.0); HEMATOCRIT 26.7 % (42-54); LYMPHOCYTES % (AUTO) 11.6 % (21.0-51.0); MEAN CORPUSCULAR HEMOGLOBIN 26.3 pg (27.0-33.0); MEAN CORPUSCULAR HGB CONC 31.5 g/dL (32.0-36.0); MEAN CORPUSCULAR VOLUME 83.7 fL (79-99); MONOCYTES % (AUTO) 9.2 % (3.0-13.0); NEUTROPHILS % (AUTO) 72.1 % (40.0-77.0); PLATELET COUNT (AUTO) 69 K/uL (130-400); RED BLOOD CELL COUNT(AUTO) 3.19 MIL/uL (4.50-6.20); RED CELL DISTRIBUTION WIDTH 22.9 % (11.0-15.5); WHITE BLOOD COUNT (AUTO) 9.1 K/uL (4.8-10.8)
[2020-10-05 05:54] LABS: CREATININE 7.2 mg/dL (0.5-1.5); PHOSPHORUS 7.5 mg/dL (2.5-4.9); POTASSIUM 4.3 mmol/L (3.5-5.1)
[2020-10-05] MEDS: LACTULOSE 20 GM/30 ML UDCUP PO SCH ×2 (07:50→22:37)
[2020-10-05] MEDS: RIFAXIMIN 550 MG TABLET PO SCH ×2 (07:51→22:37)
[2020-10-05] MEDS: THIAMINE HCL 100 MG TABLET PO SCH (07:51)
[2020-10-05] MEDS: FOLIC ACID 1 MG TABLET PO SCH (07:51)
[2020-10-05] MEDS: CALCIUM ACETATE 667 MG CAPSULE PO SCH ×3 (07:51→16:15)
[2020-10-05] MEDS: MIDODRINE HCL 5 MG TABLET PO SCH ×3 (07:51→22:37)
[2020-10-05] MEDS: MULTIVITAMIN WITH MINERALS TABLET PO SCH (07:51)
[2020-10-05 08:13] LABS: TOTAL PROTEIN, SERUM 5.2 g/dL (6.0-8.3)
[2020-10-05 08:20] LABS: BILIRUBIN,DIRECT 12.7 mg/dL (0.0-0.3); BILIRUBIN,TOTAL 19.9 mg/dL (0.2-1.0)
[2020-10-05 08:26] LABS: INR 2.19 (0.85-1.15); PROTHROMBIN TIME 22.2 SEC (9.6-11.6)
[2020-10-05] MEDS: OCTREOTIDE ACETATE 100 MCG/ML AMP IV SCH ×2 (08:31→13:10)
[2020-10-05] MEDS ORDERED: FUROSEMIDE 10 MG/ML 4ML VIAL IV SCH (12:30)
[2020-10-05] MEDS: CEPHALEXIN 250 MG CAPSULE PO SCH (16:15)
[2020-10-06 05:07] VITALS: BP 99/44
[2020-10-06 06:29] LABS: BASOPHILS % (AUTO) 0.8 % (0.0-5.0); EOSINOPHILS % (AUTO) 4.3 % (0.0-8.0); LYMPHOCYTES % (AUTO) 10.1 % (21.0-51.0); MEAN CORPUSCULAR HEMOGLOBIN 26.1 pg (27.0-33.0); MEAN CORPUSCULAR HGB CONC 31.5 g/dL (32.0-36.0); MEAN CORPUSCULAR VOLUME 82.8 fL (79-99); MONOCYTES % (AUTO) 8.7 % (3.0-13.0); NEUTROPHILS % (AUTO) 75.5 % (40.0-77.0); PLATELET COUNT (AUTO) 44 K/uL (130-400); RED BLOOD CELL COUNT(AUTO) 3.14 MIL/uL (4.50-6.20); RED CELL DISTRIBUTION WIDTH 23.3 % (11.0-15.5); WHITE BLOOD COUNT (AUTO) 8.8 K/uL (4.8-10.8)
[2020-10-06 06:51] LABS: INR 2.43 (0.85-1.15); PROTHROMBIN TIME 24.4 SEC (9.6-11.6)
[2020-10-06 07:09] LABS: ALBUMIN 1.8 g/dL (3.5-5.0); POTASSIUM 4.5 mmol/L (3.5-5.1); TOTAL PROTEIN, SERUM 4.9 g/dL (6.0-8.3)
[2020-10-06 07:13] LABS: CREATININE 7.9 mg/dL (0.5-1.5)
[2020-10-06 07:14] LABS: BILIRUBIN,TOTAL 18.6 mg/dL (0.2-1.0)
[2020-10-06 08:20] VITALS: BP 138/69
[2020-10-06 08:57] LABS: PLATELET MORPHOLOGY COMMENT MARKED DECREASE
[2020-10-06] MEDS: PANTOPRAZOLE SODIUM 40 MG TABLET.DR PO SCH (09:00)
[2020-10-06] MEDS: LACTULOSE 20 GM/30 ML UDCUP PO SCH ×2 (09:00→20:52)
[2020-10-06] MEDS: CALCIUM ACETATE 667 MG CAPSULE PO SCH ×3 (09:00→16:55)
[2020-10-06] MEDS: MULTIVITAMIN WITH MINERALS TABLET PO SCH (09:01)
[2020-10-06] MEDS: THIAMINE HCL 100 MG TABLET PO SCH (09:01)
[2020-10-06] MEDS: RIFAXIMIN 550 MG TABLET PO SCH ×2 (09:01→20:52)
[2020-10-06] MEDS: MIDODRINE HCL 5 MG TABLET PO SCH ×3 (09:01→20:52)
[2020-10-06] MEDS: FOLIC ACID 1 MG TABLET PO SCH (09:01)
[2020-10-06 11:55] VITALS: BP 123/59
[2020-10-06 16:00] VITALS: BP 125/74
[2020-10-06] MEDS: CEPHALEXIN 250 MG CAPSULE PO SCH (16:55)
[2020-10-06 19:27] VITALS: BP 144/71
[2020-10-07] VITALS (7 sets, daily range): BP systolic 100–134; BP diastolic 60–71
[2020-10-07 04:16] LABS: BASOPHILS % (AUTO) 0.7 % (0.0-5.0); EOSINOPHILS % (AUTO) 4.7 % (0.0-8.0); HEMATOCRIT 25.6 % (42-54); LYMPHOCYTES % (AUTO) 9.3 % (21.0-51.0); MEAN CORPUSCULAR HGB CONC 32.4 g/dL (32.0-36.0); MEAN CORPUSCULAR VOLUME 83.4 fL (79-99); MONOCYTES % (AUTO) 7.6 % (3.0-13.0); PLATELET COUNT (AUTO) 52 K/uL (130-400); RED BLOOD CELL COUNT(AUTO) 3.07 MIL/uL (4.50-6.20); RED CELL DISTRIBUTION WIDTH 23.4 % (11.0-15.5); WHITE BLOOD COUNT (AUTO) 9.4 K/uL (4.8-10.8)
[2020-10-07 04:33] LABS: POTASSIUM 4.2 mmol/L (3.5-5.1)
[2020-10-07 04:41] LABS: CREATININE 7.9 mg/dL (0.5-1.5)
[2020-10-07 06:18] LABS: INR 2.69 (0.85-1.15); PROTHROMBIN TIME 26.8 SEC (9.6-11.6)
[2020-10-07 06:25] LABS: ALBUMIN 1.8 g/dL (3.5-5.0)
[2020-10-07 06:45] LABS: BILIRUBIN,DIRECT 12.7 mg/dL (0.0-0.3); BILIRUBIN,TOTAL 19.8 mg/dL (0.2-1.0)
[2020-10-07] MEDS: LACTULOSE 20 GM/30 ML UDCUP PO SCH ×2 (08:57→21:56)
[2020-10-07] MEDS: CEPHALEXIN 250 MG CAPSULE PO SCH (08:57)
[2020-10-07] MEDS: FOLIC ACID 1 MG TABLET PO SCH (08:57)
[2020-10-07] MEDS: RIFAXIMIN 550 MG TABLET PO SCH ×2 (08:57→21:56)
[2020-10-07] MEDS: MULTIVITAMIN WITH MINERALS TABLET PO SCH (08:57)
[2020-10-07] MEDS: PANTOPRAZOLE SODIUM 40 MG TABLET.DR PO SCH (08:57)
[2020-10-07] MEDS: CALCIUM ACETATE 667 MG CAPSULE PO SCH ×3 (08:57→16:20)
[2020-10-07] MEDS: MIDODRINE HCL 5 MG TABLET PO SCH ×3 (08:57→21:56)
[2020-10-07] MEDS: THIAMINE HCL 100 MG TABLET PO SCH (08:57)
[2020-10-07] MEDS ORDERED: ONDANSETRON HCL 4 MG/2 ML VIAL IVP PRN (11:45)
[2020-10-08 04:15] VITALS: BP 92/52
[2020-10-08 04:36] LABS: HEMATOCRIT 29.1 % (42-54); MEAN CORPUSCULAR HEMOGLOBIN 26.6 pg (27.0-33.0); MEAN CORPUSCULAR HGB CONC 32.3 g/dL (32.0-36.0); MEAN CORPUSCULAR VOLUME 82.4 fL (79-99); RED BLOOD CELL COUNT(AUTO) 3.53 MIL/uL (4.50-6.20); RED CELL DISTRIBUTION WIDTH 23.8 % (11.0-15.5); WHITE BLOOD COUNT (AUTO) 12.7 K/uL (4.8-10.8)
[2020-10-08 04:45] LABS: INR 2.79 (0.85-1.15); PROTHROMBIN TIME 27.7 SEC (9.6-11.6)
[2020-10-08 04:46] LABS: PARTIAL THROMBOPLASTIN TIME 67.6 SEC (26.3-35.5)
[2020-10-08 04:59] LABS: ALBUMIN 1.9 g/dL (3.5-5.0); CREATININE 7.8 mg/dL (0.5-1.5); POTASSIUM 4.4 mmol/L (3.5-5.1); TOTAL PROTEIN, SERUM 5.4 g/dL (6.0-8.3)
[2020-10-08 05:06] LABS: BILIRUBIN,TOTAL 21.7 mg/dL (0.2-1.0)
[2020-10-08 07:57] VITALS: BP 112/63
[2020-10-08] MEDS: THIAMINE HCL 100 MG TABLET PO SCH (08:17)
[2020-10-08] MEDS: FOLIC ACID 1 MG TABLET PO SCH (08:17)
[2020-10-08] MEDS: PANTOPRAZOLE SODIUM 40 MG TABLET.DR PO SCH (08:17)
[2020-10-08] MEDS: MULTIVITAMIN WITH MINERALS TABLET PO SCH (08:17)
[2020-10-08] MEDS: CEPHALEXIN 250 MG CAPSULE PO SCH (08:17)
[2020-10-08] MEDS: RIFAXIMIN 550 MG TABLET PO SCH ×2 (08:17→20:47)
[2020-10-08] MEDS: CALCIUM ACETATE 667 MG CAPSULE PO SCH ×3 (08:17→16:46)
[2020-10-08] MEDS: MIDODRINE HCL 5 MG TABLET PO SCH ×3 (08:18→20:47)
[2020-10-08] MEDS: LACTULOSE 20 GM/30 ML UDCUP PO SCH ×2 (08:18→20:47)
[2020-10-08 12:00] VITALS: BP 101/50
[2020-10-08 16:00] VITALS: BP 110/60
[2020-10-08 19:00] VITALS: BP 92/42
[2020-10-09] VITALS (7 sets, daily range): BP systolic 86–131; BP diastolic 41–63
[2020-10-09 06:07] LABS: HEMATOCRIT 26.9 % (42-54); MEAN CORPUSCULAR HEMOGLOBIN 26.7 pg (27.0-33.0); MEAN CORPUSCULAR VOLUME 83.5 fL (79-99); PLATELET COUNT (AUTO) 44 K/uL (130-400); RED BLOOD CELL COUNT(AUTO) 3.22 MIL/uL (4.50-6.20); RED CELL DISTRIBUTION WIDTH 23.5 % (11.0-15.5)
[2020-10-09 06:12] LABS: INR 3.11 (0.85-1.15); PROTHROMBIN TIME 30.6 SEC (9.6-11.6)
[2020-10-09 06:38] LABS: ALBUMIN 1.8 g/dL (3.5-5.0); POTASSIUM 4.4 mmol/L (3.5-5.1); TOTAL PROTEIN, SERUM 4.9 g/dL (6.0-8.3)
[2020-10-09 06:40] LABS: BILIRUBIN,TOTAL 21.4 mg/dL (0.2-1.0); CREATININE 8.1 mg/dL (0.5-1.5)
[2020-10-09] MEDS: CALCIUM ACETATE 667 MG CAPSULE PO SCH ×3 (08:00→17:00)
[2020-10-09] MEDS: MIDODRINE HCL 5 MG TABLET PO SCH ×3 (09:00→22:10)
[2020-10-09] MEDS: LACTULOSE 20 GM/30 ML UDCUP PO SCH ×2 (09:00→22:10)
[2020-10-09] MEDS: THIAMINE HCL 100 MG TABLET PO SCH (09:00)
[2020-10-09] MEDS: CEPHALEXIN 250 MG CAPSULE PO SCH (09:00)
[2020-10-09] MEDS: MULTIVITAMIN WITH MINERALS TABLET PO SCH (09:00)
[2020-10-09] MEDS: FOLIC ACID 1 MG TABLET PO SCH (09:00)
[2020-10-09] MEDS: RIFAXIMIN 550 MG TABLET PO SCH ×2 (09:00→22:10)
[2020-10-09] MEDS: PANTOPRAZOLE 40 MG/VIAL IVP SCH (09:51)
[2020-10-09 12:37] LABS: HEMATOCRIT 26.1 % (42-54)
[2020-10-10 03:46] VITALS: BP 122/48
[2020-10-10 04:39] LABS: HEMATOCRIT 25.5 % (42-54); MEAN CORPUSCULAR HEMOGLOBIN 26.1 pg (27.0-33.0); MEAN CORPUSCULAR HGB CONC 31.4 g/dL (32.0-36.0); MEAN CORPUSCULAR VOLUME 83.3 fL (79-99); PLATELET COUNT (AUTO) 33 K/uL (130-400); RED BLOOD CELL COUNT(AUTO) 3.06 MIL/uL (4.50-6.20); RED CELL DISTRIBUTION WIDTH 23.8 % (11.0-15.5); WHITE BLOOD COUNT (AUTO) 9.7 K/uL (4.8-10.8)
[2020-10-10 04:50] LABS: POTASSIUM 4.2 mmol/L (3.5-5.1)
[2020-10-10 05:00] LABS: CREATININE 8.7 mg/dL (0.5-1.5)
[2020-10-10 08:00] VITALS: BP 117/43
[2020-10-10] MEDS: RIFAXIMIN 550 MG TABLET PO SCH (09:19)
[2020-10-10] MEDS: LACTULOSE 20 GM/30 ML UDCUP PO SCH (09:19)
[2020-10-10] MEDS: MIDODRINE HCL 5 MG TABLET PO SCH ×2 (09:19→14:27)
[2020-10-10] MEDS: MULTIVITAMIN WITH MINERALS TABLET PO SCH (09:19)
[2020-10-10] MEDS: THIAMINE HCL 100 MG TABLET PO SCH (09:19)
[2020-10-10] MEDS: FOLIC ACID 1 MG TABLET PO SCH (09:19)
[2020-10-10] MEDS: CEPHALEXIN 250 MG CAPSULE PO SCH (09:19)
[2020-10-10] MEDS: PANTOPRAZOLE 40 MG/VIAL IVP SCH (09:19)
[2020-10-10] MEDS: CALCIUM ACETATE 667 MG CAPSULE PO SCH ×3 (09:22→17:50)
[2020-10-10 11:54] VITALS: BP 94/45
[2020-10-10 15:58] VITALS: BP 115/56
== END 2020-10-10 18:30 | disposition hospice, home (50) | DRG 871 ==
LOC: EDH 18:13 → EDHIP 18:14 → 2CH 09-28 05:21 → 4DH 09-29 20:21
PROVIDERS: ADMIT Internal Medicine; ATTEND Internal Medicine
PROC: 30233K1 Transfusion of Nonautologous Frozen Plasma into Peripheral Vein, Percutaneous Approach (ICD-10-PCS; 2020-09-28)
PROC: 30233N1 Transfusion of Nonautologous Red Blood Cells into Peripheral Vein, Percutaneous Approach (ICD-10-PCS; 2020-09-28)
PROC: 30233R1 Transfusion of Nonautologous Platelets into Peripheral Vein, Percutaneous Approach (ICD-10-PCS; 2020-10-03)
PROC: 0DJD8ZZ Inspection of Lower Intestinal Tract, Via Natural or Artificial Opening Endoscopic (ICD-10-PCS; principal; 2020-10-04)
DX: A41.9 Sepsis, unspecified organism (principal); E43 Unspecified severe protein-calorie malnutrition; K72.00 Acute and subacute hepatic failure without coma; N18.6 End stage renal disease; N17.0 Acute kidney failure with tubular necrosis; D68.9 Coagulation defect, unspecified; E87.1 Hypo-osmolality and hyponatremia; L03.115 Cellulitis of right lower limb; L03.116 Cellulitis of left lower limb; D62 Acute posthemorrhagic anemia; D61.818 Other pancytopenia; N10 Acute pyelonephritis; Z51.5 Encounter for palliative care; Z66 Do not resuscitate; R65.20 Severe sepsis without septic shock; E87.70 Fluid overload, unspecified; F10.10 Alcohol abuse, uncomplicated; T36.8X5A Adverse effect of other systemic antibiotics, initial encounter; R53.81 Other malaise; S80.12XA Contusion of left lower leg, initial encounter; K70.10 Alcoholic hepatitis without ascites; S30.1XXA Contusion of abdominal wall, initial encounter; K70.30 Alcoholic cirrhosis of liver without ascites; Z68.34 Body mass index [BMI] 34.0-34.9, adult; Z91.81 History of falling; Y93.89 Activity, other specified; Y92.89 Other specified places as the place of occurrence of the external cause; Y99.8 Other external cause status; Z80.9 Family history of malignant neoplasm, unspecified; Z82.3 Family history of stroke; Z79.899 Other long term (current) drug therapy; Z91.19 Patient's noncompliance with other medical treatment and regimen
CPT/HCPCS: 36415; 36430; 45378; 71045; 76705; 80048; 80053; 80076; 80202; 80305; 81001; 82140; 82150; 82248; 82270; 82550; 82570; 82948; 83036; 83540; 83550; 83605; 83690; 83735; 83874; 83880; 84100; 84145; 84300; 84478; 84484; 85014; 85018; 85025; 85027; 85384; 85610; 85730; 86850; 86900; 86901; 86923; 86927; 87040; 87088; 93005; 93970; 93971; 97039; 99291; C9113; G0378; J1885; J1940; J1956; J2250; J2354; J2704; J3370; J3411; J3430; J3490; J7030; J7040; J7050; P9012; P9016; P9017; P9034; P9046